=== PATIENT | male | born 1955 | race Caucasian/White ===

== ENCOUNTER 2020-02-01 21:33 | Inpatient (IN) | payer BC ==
[~2020-02-01] VITALS: Ht 180.3 cm; Wt 110.8 kg
[2020-02-01] MEDS ORDERED: ACETAMINOPHEN ES 500 MG TABLET PO ONE (21:45)
[2020-02-01] MEDS ORDERED: IV NORMAL SALINE 500 ML BAG IV ONE (21:45)
[2020-02-01] MEDS ORDERED: levETIRAcetam IV 500 MG in IV DEXTROSE 5% 100 ML IV ONE (21:45)
--- NOTE | 2020-02-01 21:45 | NUR ---
Patient brought in by SIMONE from home after seizure episode, resulting in fall. Patient is postictal upon arrival. Patient is alert, oriented to name & date of at this time. Hx of seizures. IV access to left forearm 18 gauge placed by EMS. Seizure precautions implemented. Patient denies any pain or discomfort at this time. Will continue to monitor.
[2020-02-01] MEDS ORDERED: levETIRAcetam 500 MG/5 ML VIAL IV ONE (21:52)
[2020-02-01 22:09] LABS: BASOPHILS # (AUTO) 0.1 K/uL (0.0-8.0); BASOPHILS % (AUTO) 0.7 % (0.0-2.0); CREATININE 1.5 mg/dL (0.6-1.3); EOSINOPHILS % (AUTO) 0.2 % (0.0-7.0); HEMATOCRIT 48.2 % (36.7-47.1); HEMOGLOBIN 15.6 g/dL (12.5-16.3); LYMPHOCYTES # (AUTO) 1.7 K/uL (20.0-40.0); LYMPHOCYTES % (AUTO) 12.7 % (20.5-51.5); MEAN CORPUSCULAR HEMOGLOBIN 27.3 uug (23.8-33.4); MEAN CORPUSCULAR HGB CONC 32 g/dL (32.5-36.3); MEAN CORPUSCULAR VOLUME 84.6 fL (73.0-96.2); MONOCYTES # (AUTO) 0.8 K/uL (2.0-10.0); NEUTROPHILS # (AUTO) 11.1 K/uL (1.8-8.9); NEUTROPHILS % (AUTO) 80.4 % (38.5-71.5); PLATELET COUNT (AUTO) 216 K/uL (152-348); POTASSIUM 3.6 mmol/L (3.5-5.1); WHITE BLOOD COUNT (AUTO) 13.7 K/uL (3.6-10.2)
--- NOTE | 2020-02-01 22:10 | NUR ---
Patient was given levetiracetam (keppra) 500mg IV through patient's IV access on the left forearm 18 gauge on 02/01/20 at 2154. IV stop time at 2209.
[2020-02-01 22:15] LABS: BILIRUBIN,DIRECT 0.2 mg/dL (0.0-0.2); BILIRUBIN,TOTAL 0.7 mg/dL (0.2-1.0); TOTAL PROTEIN, SERUM 5.8 g/dL (6.4-8.2)
--- NOTE | 2020-02-01 22:22 | NUR ---
Patient's (Kindra Bear) phone# [phone]
[2020-02-01] MEDS ORDERED: ACETAMINOPHEN ES 500 MG TABLET ONE (22:35)
[2020-02-01] MEDS ORDERED: POTA-10 PO (22:40)
[2020-02-01] MEDS ORDERED: LACO50TA2 PO (22:40)
[2020-02-01] MEDS ORDERED: LISI-603 PO (22:40)
[2020-02-01] MEDS ORDERED: TRIA0.252 PO (22:40)
[2020-02-01] MEDS ORDERED: HYDR-3980 PO (22:40)
[2020-02-01] MEDS ORDERED: FURO40TA5 PO (22:40)
[2020-02-01] MEDS ORDERED: PREG75CA PO (22:40)
[2020-02-01] MEDS ORDERED: LEVE500T9 PO (22:40)
[2020-02-01] MEDS ORDERED: DEXT10TA7 PO (22:40)
--- NOTE | 2020-02-01 22:51 | NUR ---
Call placed to [facility] for Panel Call
--- NOTE | 2020-02-01 23:02 | NUR ---
Patient is more awake, alert, oriented x 3. C-spine cleared by Dr. Austin . C-Collar removed. Patient able to move all extremities before and after backboard removal. Covid swab sent to lab. Patient is pending admission.
--- NOTE | 2020-02-01 23:10 | NUR ---
Pt. admitted to Telemetry, under care of Rodriguez Dias. Diagnosis: Seizures Belongs List completed Addendum: 02/01/20 at 2316 by [email or web address] Diagnosis: Seizure/Elevated Troponin
--- NOTE | 2020-02-01 23:28 | NUR ---
Report given to JOHNATHON Martinez. Per charge nurse, patient needs to wait in ER for covid test result prior to transfer to inpatient.
[2020-02-01] MEDS ORDERED: ACETAMINOPHEN 325 MG TABLET PO PRN (23:30)
[2020-02-01] MEDS ORDERED: MORPHINE SULFATE 2 MG/1 ML DISP.SYRIN IV PRN (23:30)
[2020-02-01] MEDS ORDERED: ASPIRIN 325 MG TABLET PO ONE (23:30)
[2020-02-01] MEDS ORDERED: ONDANSETRON 4 MG/2 ML VIAL IV PRN (23:30)
[2020-02-02] MEDS ORDERED: MORPHINE SULFATE 2 MG/1 ML DISP.SYRIN ONE (00:28)
[2020-02-02] MEDS ORDERED: ASPIRIN 325 MG TABLET ONE (01:32)
--- NOTE | 2020-02-02 03:14 | NUR ---
Patient is resting in bed. Pending covid test results.
--- NOTE | 2020-02-02 03:22 | NUR ---
Per [facility], unable to process rapid covid test results at this time due to machine not functioning. Notified house fellow.
--- NOTE | 2020-02-02 04:00 | NUR ---
Patient brought to Telemetry from ER via [facility] by staff nurse.Patient Alert x3 ,able to make needs known.On RA. No s/s of distress noted .Head to toe assessment done.Noted with two IV site.Right AC with 20g and Left forearm 18 g ,both patent and intact, no s/s of infiltration.Seizures precaution implemented.Safety measures in place.Call light within reach .Will continue to monitor.
[2020-02-02 04:06] VITALS: BP 153/76
[2020-02-02 04:31] LABS: BASOPHILS # (AUTO) 0.1 K/uL (0.0-8.0); BASOPHILS % (AUTO) 0.8 % (0.0-2.0); EOSINOPHILS % (AUTO) 0.2 % (0.0-7.0); HEMATOCRIT 47.4 % (36.7-47.1); HEMOGLOBIN 15.9 g/dL (12.5-16.3); LYMPHOCYTES # (AUTO) 1.4 K/uL (20.0-40.0); LYMPHOCYTES % (AUTO) 9.9 % (20.5-51.5); MEAN CORPUSCULAR HEMOGLOBIN 27.9 uug (23.8-33.4); MEAN CORPUSCULAR HGB CONC 34 g/dL (32.5-36.3); MEAN CORPUSCULAR VOLUME 83.2 fL (73.0-96.2); MONOCYTES % (AUTO) 6.8 % (0.0-11.0); NEUTROPHILS # (AUTO) 11.6 K/uL (1.8-8.9); NEUTROPHILS % (AUTO) 82.3 % (38.5-71.5); PLATELET COUNT (AUTO) 204 K/uL (152-348); WHITE BLOOD COUNT (AUTO) 14.1 K/uL (3.6-10.2)
[2020-02-02 04:52] LABS: BILIRUBIN,TOTAL 1.1 mg/dL (0.2-1.0); CREATININE 1.1 mg/dL (0.6-1.3); MAGNESIUM 2.4 mg/dL (1.8-2.4); PHOSPHOROUS 2.9 mg/dL (2.5-4.9); POTASSIUM 3.5 mmol/L (3.5-5.1)
[2020-02-02 05:01] LABS: THYROID STIMULATING HORMONE 0.816 mIU/mL (0.358-3.740)
[2020-02-02] MEDS: PREGABALIN 25 MG CAPSULE PO SCH ×3 (05:17→17:34)
[2020-02-02] MEDS: LACOSAMIDE 50 MG TABLET PO SCH ×2 (08:27→17:33)
[2020-02-02] MEDS: levETIRAcetam 250 MG TABLET PO SCH ×2 (08:27→21:38)
[2020-02-02] MEDS ORDERED: LISINOPRIL 20 MG TABLET PO SCH (09:00)
[2020-02-02] MEDS ORDERED: ASPIRIN 81 MG TAB.CHEW PO SCH (09:00)
[2020-02-02] MEDS ORDERED: FUROSEMIDE 40 MG TABLET PO SCH (09:00)
--- NOTE | 2020-02-02 09:00 | NUR ---
Lyrica scheduled for 0900 not given since last dose was at 0500. Per pharmacy do not give 0900 dose
[2020-02-02] MEDS: HYDROCODONE/APAP 10-325 MG TABLET PO PRN ×2 (09:02→17:42)
[2020-02-02 11:35] LABS: *BILIRUBIN,URIN NEGATIVE (NEGATIVE); *BLOOD, URINE NEGATIVE (NEGATIVE); *CLARITY,URINE CLEAR (CLEAR); *COLOR,URINE YELLOW (YELLOW); *KETONES,URINE NEGATIVE (NEGATIVE); LEUKOCYTE ESTERASE ,URINE NEGATIVE (NEGATIVE); NITRITE, URINE NEGATIVE (NEGATIVE); PH,URINE 6.5 (5.0-8.0); UGLUCOSE NEGATIVE (NEGATIVE)
[2020-02-02 12:00] VITALS: BP 114/67
[2020-02-02 16:05] VITALS: BP 146/71
--- NOTE | 2020-02-02 19:00 | NUR ---
Pt in bed, awake. Pt denies any acute distress or pain at this time. Pt denies any seizures during the day. V/S stable on room air. Afebrile. NSR on tele monitor. Pt noted to have left pitting edema on the left foot. RAC 20G and LHand 20G IVs are both intact. Safety measures in place. Bed low and locked in position. Seizure precaution in place. Call light within reach. Will continue with the plan of care.
--- NOTE | 2020-02-02 19:51 | NUR ---
Pt stable throughout shift, AOx3 but very forgetful. Informed to stay in bed for seizure precautions, verbalized understanding but would still walk around the room. No seizure episode throughout shift. On RA denied SOB or distress at this time. on Tele NSR, denied chest pain. Ambulates to bathroom with steady gait. Seizure precaution in place. Bed locked in lowest position with siderails 2x up. Call light within reach.
[2020-02-02 20:15] VITALS: BP 160/83
--- NOTE | 2020-02-02 20:30 | NUR ---
Pt wants to go AMA. Per patient, he is stable enough to go home. V/S stable on room air. Dr. Gardiner notified.
--- NOTE | 2020-02-02 20:53 | NUR ---
Patient was educated and signed AMA.
[2020-02-02] MEDS ORDERED: ATORVASTATIN 20 MG TABLET PO SCH (21:00)
--- NOTE | 2020-02-02 21:46 | NUR ---
Pt in fair condition. Personal belongings on hand. Pt was transported by ELZBIETA Diaz via wheelchair. Picked up by in the lobby.
== END 2020-02-02 21:46 | disposition left against medical advice (07) | DRG 100 ==
LOC: ER 21:35 → UNDOADMIN 23:23 → TELE3 23:23
PROVIDERS: ADMIT Internal Medicine; ATTEND Internal Medicine
DX: G40.909 Epilepsy, unspecified, not intractable, without status epilepticus (principal); N17.0 Acute kidney failure with tubular necrosis; I21.A1 Myocardial infarction type 2; M62.82 Rhabdomyolysis; D68.69 Other thrombophilia; D72.829 Elevated white blood cell count, unspecified; Z86.73 Personal history of transient ischemic attack (TIA), and cerebral infarction without residual deficits; R79.89 Other specified abnormal findings of blood chemistry; Z91.14 Patient's other noncompliance with medication regimen; I11.0 Hypertensive heart disease with heart failure; I50.9 Heart failure, unspecified; S00.81XA Abrasion of other part of head, initial encounter; X58.XXXA Exposure to other specified factors, initial encounter; Y93.9 Activity, unspecified; Y92.009 Unspecified place in unspecified non-institutional (private) residence as the place of occurrence of the external cause; S01.512A Laceration without foreign body of oral cavity, initial encounter; I87.8 Other specified disorders of veins; F43.9 Reaction to severe stress, unspecified; R94.31 Abnormal electrocardiogram [ECG] [EKG]
CPT/HCPCS: 36415; 70030-TC; 70450; 71045; 72125; 80299; 83605; 83735; 84100; 84443; 85025; 85730; 93005; A4663; A9150; G0378; J1953; J2270; J7040; J7060